=== PATIENT | female | born 1960 | race Caucasian/White ===

== ENCOUNTER 2023-03-12 18:13 | Emergency (ER) | payer SELFPAY ==
[2023-03-12] MEDS ORDERED: Acetaminophen 500 MG TAB ONE (19:01)
== END 2023-03-12 19:23 | disposition home or self-care (01) ==
LOC: CSHERS 18:13
DX: S90.31XA Contusion of right foot, initial encounter (principal); K21.9 Gastro-esophageal reflux disease without esophagitis; E78.00 Pure hypercholesterolemia, unspecified; W20.8XXA Other cause of strike by thrown, projected or falling object, initial encounter

== ENCOUNTER 2023-07-16 15:06 | Emergency (ER) | payer OTHER, SELFPAY ==
[2023-07-16 17:38] LABS: ALT (SGPT) 30 U/L (8-55); AST (SGOT) 29 U/L (5-34); Albumin 4.2 g/dL (3.4-4.8); Alkaline Phosphatase 78 U/L (40-110); Anion Gap 13 mmol/L (10-20); BUN (Urea Nitrogen) 21 mg/dL (9.8-20.1); Bilirubin, Total 0.3 mg/dL (0.2-1.2); Calc. Creatinine Clearance 0 mL/min (70-130); Calcium 8.7 mg/dL (7.8-10.44); Carbon Dioxide 25 mmol/L (23-31); Chloride 106 mmol/L (98-107); Estimated GFR 82; Globulin 2.4 g/dL (2.4-3.5); Glucose 111 mg/dL (80-115); Lipase 41 U/L (8-78); Magnesium 2.1 mg/dL (1.6-2.6); Protein, Total 6.6 g/dL (5.8-8.1); Sodium 140 mmol/L (136-145)
[2023-07-16 17:44] LABS: Troponin I Less than 0.010 ng/mL (< 0.028)
[2023-07-16 17:47] LABS: #Eosinphils 0.2 10x3/uL (0.0-0.5); #Monocytes 0.6 10x3/uL (0.0-1.1); #Neutrophils 4.5 10x3/uL (1.5-8.4); %Basophils 0.5 % (0.0-2.0); %Lymphocytes 31.8 % (18.0-47.0); %Monocytes 7.7 % (0.0-10.0); %Neutrophils 57.6 % (40.0-75.0); Hematocrit 35.9 % (34.9-44.5); Hemoglobin 12.4 g/dL (12.0-15.5); Mean Corpuscular HGB CONC 34.5 g/dL (32.0-36.0); Mean Corpuscular Hemoglobin 30.2 pg (27.0-33.0); Mean Corpuscular Volume 87.6 fl (81.6-98.3); Mean Platelet Volume 10.3 fl (7.4-10.4); Platelet Count 330 10x3/uL (150-450); RBC Distribution Width 12.4 % (11.5-14.5); White Blood Cell (WBC) Count 7.8 10x3/uL (3.5-10.5)
[2023-07-16 19:44] LABS: Troponin I Less than 0.010 ng/mL (< 0.028)
== END 2023-07-16 20:38 | disposition left against medical advice (07) ==
LOC: CSHERS 15:06
DX: R07.9 Chest pain, unspecified (principal)
CPT/HCPCS: 36415; 71045; 80053; 83690; 83735; 83880; 84484; 85025; 85379

== ENCOUNTER 2023-11-28 08:49 | Emergency (ER) | payer OTHER ==
[2023-11-28] MEDS ORDERED: Ibuprofen 200 MG TAB ONE (09:25)
== END 2023-11-28 09:32 | disposition home or self-care (01) ==
LOC: CSHERS 08:49
DX: M54.41 Lumbago with sciatica, right side (principal)
CPT/HCPCS: 99283

== ENCOUNTER 2024-02-29 21:25 | Emergency (ER) | payer MEDICARE, OTHER ==
[2024-02-29] MEDS ORDERED: Dexamethasone 10 MG/ML VIAL ONE (22:50)
== END 2024-02-29 23:50 | disposition home or self-care (01) ==
LOC: CSHERS 21:25
DX: M54.2 Cervicalgia (principal); K21.9 Gastro-esophageal reflux disease without esophagitis; Z79.899 Other long term (current) drug therapy
CPT/HCPCS: 96372; 99283; J1100